=== PATIENT | female | born 1975 | race Caucasian/White ===

== ENCOUNTER → 2018-06-29 15:11 | Outpatient (CLI) | payer OTHER, SELFPAY ==
[2018-06-29 15:52] LABS: Basophils # 0.1 K/mm3 (0-0.2); Basophils % 0.4 % (0.1-2.0); Eosinophils # 0.1 K/mm3 (0.0-0.4); Eosinophils % 0.9 % (0.1-12.0); Hematocrit 40.8 % (37.0-47.0); Hemoglobin 12.8 g/dL (12.2-16.2); Lymphocytes # 2.9 K/mm3 (0.7-4.5); Lymphocytes % 21.9 % (10-50); Mean Corpuscular HGB Conc 31.4 g/dL (31.8-35.4); Mean Corpuscular Hemoglobin 27.3 pg (27.0-31.2); Mean Corpuscular Volume 86.9 fl (81-99); Mean Platelet Volume 6.9 fl (7.4-10.4); Monocytes # 0.7 K/mm3 (0.1-1.0); Monocytes % 5.3 % (1.7-9.3); Neutrophils # 9.3 K/mm3 (1.8-7.8); Neutrophils % 71.4 % (37.0-80.0); Platelet Count 436 K/mm3 (142-424); Red Cell Distribution Width 15.8 % (11.5-17.5)
[2018-06-29 16:32] LABS: C-Reactive Protein 0.7 mg/L (0.0-0.9)
[2018-06-29 16:59] LABS: Erythrocyte Sedimentation Rate 32 mm/hr (0-20)
== END ==
PROVIDERS: Visit Provider Internal Medicine Medical Oncology
DX: D72.829 Elevated white blood cell count, unspecified (principal)
CPT/HCPCS: 36415; 81206; 85025; 85651; 86140; 88189

== ENCOUNTER 2021-01-14 18:40 | Emergency (ER) | payer OTHER, SELFPAY ==
[2021-01-14 18:43] VITALS: BP 172/96; PULSE 94; RESP 18; TEMP 37.2; O2SAT 98; BMI 31.6
[2021-01-14 19:01] VITALS: BP 172/96; PULSE 94; O2SAT 98
[2021-01-14 19:30] VITALS: BP 164/93; PULSE 94; O2SAT 97
--- NOTE | 2021-01-14 19:30 | CT_ITS ---
PROCEDURE INFORMATION: Exam: CTA Chest With Contrast Exam date and time: 01/14/2021 7:30 PM Age: 45 years old Clinical indication: Pain and injury or trauma; Blunt trauma (contusions or hematomas); Patient HX: Fall 01-11-21 with rib pain; Additional info: FX ribs, possible lung involvement TECHNIQUE: Imaging protocol: Computed tomographic angiography of the chest with contrast. 3D rendering (Not supervised by radiologist): MIP and/or 3D reconstructed images were created by the technologist. Radiation optimization: All CT scans at this facility use at least one of these dose optimization techniques: automated exposure control; mA and/or kV adjustment per patient size (includes targeted exams where dose is matched to clinical indication); or iterative reconstruction. Contrast material: ISO 370; Contrast volume: 100 ml; Contrast route: INTRAVENOUS (IV); COMPARISON: No relevant prior studies available. FINDINGS: Pulmonary arteries: No pulmonary emboli. Aorta: Mild atherosclerotic changes of the aorta. Lungs: Patchy widespread ground-glass opacities are favored to represent atypical pneumonia. There are innumerable tiny nodular opacities. Pleural spaces: Unremarkable. No pneumothorax. No pleural effusion. Heart: Unremarkable. No cardiomegaly. No pericardial effusion. Lymph nodes: Unremarkable. No enlarged lymph nodes. Bones/joints: Subtle anterior right 3rd through 6th rib fractures. Soft tissues: Unremarkable. Other findings: Stigmata of old granulomatous disease. IMPRESSION: 1. No pulmonary emboli. 2. Patchy widespread ground-glass opacities are favored to represent atypical pneumonia versus aspiration. While contusions are possible, this is less likely 3 days after the injury. 3. Subtle anterior right 3rd through 6th rib fractures. 4. There are innumerable tiny nodular opacities. While this is favored to be related to infection or aspiration, other etiologies are also possible. For patients at low risk (minimal or absent history of smoking and of other known risk factors), no routine follow-up is indicated. For patients at high risk (history of smoking or of other known risk factors), consider optional CT Chest at 12 months. (Reference: Clarissa) REFERENCES: Clarissa Rajput et al. Guidelines for Management of Incidental Pulmonary Nodules Detected on CT Images: From the Fleischner Society 2017. Radiology. 2017;284(1):228-243.
--- NOTE | 2021-01-14 19:30 | XR_ITS ---
PROCEDURE INFORMATION: Exam: XR Chest Exam date and time: 01/14/2021 7:30 PM Age: 45 years old Clinical indication: Pain and injury or trauma; Blunt trauma (contusions or hematomas); Patient HX: Fall 3 days ago with rib pain and PT said she has been told from pcp that she has a rib FX; Additional info: FX rib TECHNIQUE: Imaging protocol: XR of the chest. Views: 1 view. COMPARISON: CT ANGIO CHEST 01/14/2021 7:55 PM FINDINGS: Lungs: Patchy widespread pulmonary opacities. Pleural spaces: Unremarkable. No pleural effusion. No pneumothorax. Heart/Mediastinum: Unremarkable. No cardiomegaly. Bones/joints: Postsurgical changes of the cervical spine. Known right rib fractures are not well identified on this radiograph. IMPRESSION: Patchy widespread pulmonary opacities. Please exclude atypical pneumonia. Contusions are possible, but less likely.
--- NOTE | 2021-01-14 19:50 | PC.NURSE ---
patient off floor to CT
[2021-01-14 19:59] LABS: Chloride 102 mmol/L (98-107); Potassium 3.2 mmoL/L (3.5-5.1); Sodium 139 mmol/L (136-145)
[2021-01-14 20:02] LABS: Alanine Aminotransferase 21 U/L (12-78); Albumin Level 4.1 g/dl (3.5-5.0); Albumin/Globulin Ratio 1.1 (1.1-1.8); Alkaline Phosphatase 129 U/L (38-126); Anion Gap 12.2 mEq/L (5-15); Aspartate Amino Transferase 25 U/L (14-36); Bilirubin,Total 0.6 mg/dl (0.2-1.3); Blood Urea Nitrogen 5 mg/dl (7-17); Carbon Dioxide 28 mmol/L (22.0-30.0); Creatinine Clearance Estimated 163 mL/min (50-200); Estimated Glomerular Filt Rate 109 ml/min (>60); GFR (African American) 131 ML/MIN (>60); Globulin 3.6 g/dL (1.3-3.2); Glucose 107 mg/dl (74-100); Total Protein,Serum 7.7 g/dl (6.3-8.2)
[2021-01-14 20:13] LABS: Basophils # 0.1 K/mm3 (0-0.2); Basophils % 0.3 % (0.1-2.0); Eosinophils # 0.3 K/mm3 (0.0-0.4); Eosinophils % 1.3 % (0.1-12.0); HCG Qualitative, Serum Negative (Negative); Hematocrit 36.9 % (37.0-47.0); Hemoglobin 11.7 g/dL (12.2-16.2); Lymphocytes # 2.6 K/mm3 (0.7-4.5); Lymphocytes % 10.8 % (10-50); Mean Corpuscular HGB Conc 31.6 g/dL (31.8-35.4); Mean Corpuscular Hemoglobin 27.2 pg (27.0-31.2); Mean Corpuscular Volume 86.2 fl (81-99); Monocytes % 4.1 % (1.7-9.3); Neutrophils # 20.4 K/mm3 (1.8-7.8); Neutrophils % 83.5 % (37.0-80.0); Platelet Count 474 K/mm3 (142-424); Red Blood Count 4.29 M/mm3 (4.20-5.40); Red Cell Distribution Width 15.2 % (11.5-17.5); White Blood Count 24.5 K/mm3 (4.8-10.8)
[2021-01-14 20:16] LABS: MANUAL DIFFERENTIAL MANUAL DIFFERENTIAL (MANUAL DIFF)
[2021-01-14 20:41] LABS: Anisocytosis 1+; Eosinophils % 1 % (0-3); Lymphocytes % 6 % (10-50); Monocytes % 5 % (2-9); Neutrophils % 88 % (42-76); Platelet Estimate Slight Increase; Total Cells Counted 100
[2021-01-14 20:42] LABS: Hypochromasia 1+; Microcytosis 1+
--- NOTE | 2021-01-14 21:27 | HMH.EDGENADL ---
ED Disposition Clinical Impression: Bronchitis, SIRS (systemic inflammatory response syndrome) Ribs, multiple fractures Qualifiers: Encounter type: initial encounter Fracture type: closed Laterality: right Qualified Code(s): S22.41XA - Multiple fractures of ribs, right side, initial encounter for closed fracture Disposition: Home, Self-Care Condition on Discharge: Good Instructions: DI for Rib Fracture Additional Instructions: call pcp for close f/u Prescriptions: levoFLOXacin [Levaquin 500mg tab] 500 mg PO DAILY #7 tab Prescription Printed predniSONE [Prednisone 20mg Tab] 20 mg PO BID #10 tab Prescription Printed Referrals: Miriam Louise DO [Primary Care Provider] - - Critical Care Critical Care Time: No Attestation: On 01/14/21, the high probability of a clinically significant, sudden or life threatening deterioration of the following system(s) required my full and direct attention, intervention and personal management. The time I documented below is in addition to time spent performing reported procedures but includes the following listed in this critical care notation. Medical Decision Making - Medical Records Medical records reviewed: Yes: I reviewed the patient's medical records. - Hus[facility] Inquiry Pt receiving controlled substance: No Vital Signs: 01/14/21 18:43 01/14/21 19:01 01/14/21 19:30 Temperature 99.0 F Temperature Source Oral Pulse Rate 94 H 94 H Pulse Rate [Left Radial] 94 H Respiratory Rate 18 Blood Pressure 172/96 H 164/93 H Blood Pressure [Right Arm] 172/96 H Blood Pressure Mean [Right Arm] 121 Blood Pressure Source [Right Arm] Automatic Cuff Blood Pressure Position [Right Arm] Sitting 02 Sat by Pulse Oximetry 98 98 97 Oxygen Delivery Method Room Air Room Air Room Air 01/14/21 21:28 Temperature Temperature Source Pulse Rate Pulse Rate [Left Radial] Respiratory Rate Blood Pressure Blood Pressure [Right Arm] Blood Pressure Mean [Right Arm] Blood Pressure Source [Right Arm] Blood Pressure Position [Right Arm] 02 Sat by Pulse Oximetry 100 Oxygen Delivery Method Room Air - Lab Data Lab results reviewed: Yes: I reviewed the patient's lab results. Lab Results 01/14/21 19:39: WBC 24.5 H*, RBC 4.29, Hgb 11.7 L, Hct 36.9 L, MCV 86.2, MCH 27.2, MCHC 31.6 L, RDW 15.2, Plt Count 474 H, MPV 8.0, Neut % (Auto) 83.5 H, Lymph % (Auto) 10.8, Gilliam % (Auto) 4.1, Eos % (Auto) 1.3, Baso % (Auto) 0.3, Neut # (Auto) 20.4 H, Lymph # (Auto) 2.6, Gilliam # (Auto) 1.0, Eos # (Auto) 0.3, Baso # (Auto) 0.1, Total Counted 100, Neutrophils % (Manual) 88 H, Lymphocytes % (Manual) 6 L, Monocytes % (Manual) 5, Eosinophils % (Manual) 1, Platelet Estimate Slight increase, Hypochromasia 1+, Anisocytosis 1+, Microcytosis 1+ 01/14/21 19:39: Sodium 139, Potassium 3.2 L, Chloride 102, Carbon Dioxide 28, Anion Gap 12.2, BUN 5 L, Creatinine 0.60, Estimated Creat Clear 163, Estimated GFR 109, Est GFR ( Amer) 131, Glucose 107 H, Calcium 9.0, Total Bilirubin 0.6, AST 25, ALT 21, Alkaline Phosphatase 129 H, Total Protein 7.7, Albumin 4.1, Globulin 3.6 H, Albumin/Globulin Ratio 1.1 01/14/21 19:39: Serum HCG, Qual Negative 01/14/21 21:07: Lactate 0.7 01/14/21 21:57: SARS-CoV-2 (PCR) Not detected, Influenza A Untype (PCR) Not detected, Influenza Type B (PCR) Not detected Result diagrams: 01/14/21 19:39 01/14/21 19:39 Orders (Tests/Meds): ED MEDICATIONS Generic Name Dose Route Start Last Admin Trade Name Freq PRN Reason Stop Dose Admin Sodium Chloride 1,000 mls @ 999 mls/hr 01/14/21 21:00 01/14/21 21:05 Sod Chlor 0.9% 1000ml Bag IV 01/14/21 22:00 999 mls/hr .Q1H1M DES Administration Discontinued Medications Generic Name Dose Route Start Last Admin Trade Name Freq PRN Reason Stop Dose Admin Iopamidol 100 ml 01/14/21 20:02 01/14/21 20:03 Iopamidol-370 (76%);100ml Bottle IV 01/14/21 20:03 100 ml ONCE ONE Administration Ketorolac Tromet
[2021-01-14 21:28] VITALS: O2SAT 100
[2021-01-14 21:37] LABS: Lactic Acid 0.7 mmol/L (0.7-2.1)
[2021-01-14 22:03] LABS: Coronavirus 19, PCR Not Detected (NotDetected); Influenza A, PCR Not Detected (NotDetected); Influenza B, PCR Not Detected (NotDetected)
[2021-01-14 22:43] VITALS: BP 158/89; PULSE 92; RESP 18; TEMP 36.8; O2SAT 100
== END 2021-01-14 22:46 | disposition home or self-care (01) ==
PROVIDERS: Emergency Medicine; Emergency Provider Emergency Medicine; PCP Family Medicine
DX: S22.49XA Multiple fractures of ribs, unspecified side, initial encounter for closed fracture (principal); J20.9 Acute bronchitis, unspecified; R65.10 Systemic inflammatory response syndrome (SIRS) of non-infectious origin without acute organ dysfunction; F17.210 Nicotine dependence, cigarettes, uncomplicated; Z20.822 Contact with and (suspected) exposure to COVID-19
CPT/HCPCS: 71045; 71275; 80053; 83605; 84703; 85007; 85025; 87040; 96365; 96375; 99284; Q9967; U0003

== ENCOUNTER → 2021-12-14 10:31 | Outpatient (CLI) | payer OTHER, SELFPAY ==
--- NOTE | 2021-12-14 10:34 | US_ITS ---
FINAL REPORT CLINICAL HISTORY: heavy bleeding FINDINGS: Transvaginal sonographic images of the pelvis were obtained. The uterus measures 10.5 x 5.4 x 6.9 cm. The endometrium measures 15 mm, which is borderline thickened. There is a small, probable endometrial cyst. There is a 2.4 cm uterine fibroid. The right ovary measures 4.2 cm in length and left ovary measures 2.9 cm in length. Normal blood flow seen to the ovaries. Small follicles are present. There is a 2 cm right ovarian cyst. A small amount of free fluid is seen which may be physiologic or reactive. IMPRESSION: Borderline thickened endometrium. Follow-up ultrasound in 6-8 weeks may be helpful for further evaluation. 2.4 cm uterine fibroid. 2 cm right ovarian cyst. Reviewed, Interpreted and Dictated by Efrain Freeman III, MD Transcribed by Estephanie Yates Authenticated and [facility]
== END ==
PROVIDERS: PCP Family Medicine; Visit Provider Obstetrics & Gynecology
DX: N92.0 Excessive and frequent menstruation with regular cycle (principal)
CPT/HCPCS: 76830

== ENCOUNTER → 2021-12-14 10:56 | Outpatient (CLI) | payer OTHER, SELFPAY ==
[2021-12-14 11:35] LABS: Basophils # 0.2 K/mm3 (0-0.2); Basophils % 1.1 % (0.1-2.0); Eosinophils # 0.2 K/mm3 (0.0-0.4); Eosinophils % 1.8 % (0.1-12.0); Hemoglobin 10.7 g/dL (12.2-16.2); Lymphocytes # 3.1 K/mm3 (0.7-4.5); Lymphocytes % 22.3 % (10-50); Mean Corpuscular HGB Conc 30.6 g/dL (31.8-35.4); Mean Corpuscular Hemoglobin 23.6 pg (27.0-31.2); Mean Platelet Volume 7.6 fl (7.4-10.4); Monocytes % 7.5 % (1.7-9.3); Neutrophils # 9.3 K/mm3 (1.8-7.8); Neutrophils % 67.4 % (37.0-80.0); Platelet Count 561 K/mm3 (142-424); Red Blood Count 4.54 M/mm3 (4.20-5.40); Red Cell Distribution Width 18.2 % (11.5-17.5); White Blood Count 13.8 K/mm3 (4.8-10.8)
[2021-12-14 13:15] LABS: Thyroid Stimulating Hormone 1.06 uIU/mL (0.465-4.68)
[2021-12-15 08:18] LABS: FSH 9.8 mIU/mL (.)
== END ==
PROVIDERS: Visit Provider Obstetrics & Gynecology
DX: N92.0 Excessive and frequent menstruation with regular cycle (principal); N92.6 Irregular menstruation, unspecified
CPT/HCPCS: 36415; 83001; 84443; 85025

== ENCOUNTER → 2022-01-06 08:57 | Outpatient (CLI) | payer OTHER, SELFPAY ==
[2022-01-06 10:10] LABS: Basophils # 0.1 K/mm3 (0-0.2); Basophils % 0.8 % (0.1-2.0); Eosinophils # 0.2 K/mm3 (0.0-0.4); Eosinophils % 1.1 % (0.1-12.0); Hematocrit 33.8 % (37.0-47.0); Hemoglobin 10.2 g/dL (12.2-16.2); Lymphocytes # 2.3 K/mm3 (0.7-4.5); Lymphocytes % 15.1 % (10-50); Mean Corpuscular HGB Conc 30.3 g/dL (31.8-35.4); Mean Corpuscular Volume 79.2 fl (81-99); Mean Platelet Volume 7.5 fl (7.4-10.4); Monocytes # 0.9 K/mm3 (0.1-1.0); Monocytes % 6.1 % (1.7-9.3); Neutrophils # 11.6 K/mm3 (1.8-7.8); Neutrophils % 76.9 % (37.0-80.0); Platelet Count 555 K/mm3 (142-424); Red Blood Count 4.26 M/mm3 (4.20-5.40); Red Cell Distribution Width 18.2 % (11.5-17.5)
[2022-01-06 10:14] LABS: Benzodiazepines Screen,Urine Negative ng/ml (<200)
[2022-01-06 10:15] LABS: Amphetamine/Metha Screen,Urine Negative ng/ml (<1000)
[2022-01-06 10:16] LABS: Barbiturates Screen,Urine Negative ng/ml (<200); Cannabinoid Screen,Urine Negative ng/ml (<50); Chloride 104 mmol/L (98-107); Potassium 3.6 mmoL/L (3.5-5.1); Sodium 140 mmol/L (136-145)
[2022-01-06 10:17] LABS: Cocaine Screen,Urine Negative ng/ml (<300)
[2022-01-06 10:18] LABS: Methadone Screen,Urine Negative ng/ml (<300); Opiate Screen,Urine Negative ng/ml (<300)
[2022-01-06 10:19] LABS: Alanine Aminotransferase 17 U/L (12-78); Albumin Level 3.9 g/dl (3.5-5.0); Albumin/Globulin Ratio 1.3 (1.1-1.8); Alkaline Phosphatase 101 U/L (38-126); Anion Gap 10.6 mEq/L (5-15); Aspartate Amino Transferase 29 U/L (14-36); Bilirubin,Total 0.3 mg/dl (0.2-1.3); Blood Urea Nitrogen 7 mg/dl (7-17); Calcium 9.8 mg/dl (8.4-10.2); Carbon Dioxide 29 mmol/L (22.0-30.0); Estimated Glomerular Filt Rate 78 ml/min (>60); GFR (African American) 94 ML/MIN (>60); Globulin 2.9 g/dL (1.3-3.2); Glucose 90 mg/dl (74-100); MANUAL DIFFERENTIAL MANUAL DIFFERENTIAL (MANUAL DIFF); Phencyclidine Screen,Urine Negative ng/ml (<25); Total Protein,Serum 6.8 g/dl (6.3-8.2)
[2022-01-06 10:40] LABS: HCG,Quantitative < 2 mIU/ml (0-5.42)
[2022-01-06 19:33] LABS: Eosinophils % 2 % (0-3); Hypochromasia 2+; Lymphocytes % 11 % (10-50); Microcytosis 1+; Monocytes % 2 % (2-9); Neutrophils % 85 % (42-76); Platelet Estimate Slight Increase; Total Cells Counted 100
== END ==
PROVIDERS: Visit Provider Obstetrics & Gynecology
DX: Z01.812 Encounter for preprocedural laboratory examination (principal); Z20.822 Contact with and (suspected) exposure to COVID-19; N92.0 Excessive and frequent menstruation with regular cycle
CPT/HCPCS: 36415; 80053; 80305; 84702; 85007; 85025; C9803; U0003; U0005

== ENCOUNTER 2022-01-08 05:45 | Day surgery (SDC) | payer OTHER, SELFPAY ==
[2022-01-06 09:14] VITALS: BMI 27.4
--- NOTE | 2022-01-07 08:10 | SUR.PREOP ---
Notified Dr Dexter's office of pt's WBC
[2022-01-08] VITALS (10 sets, daily range): BP systolic 110–151; BP diastolic 66–95; PULSE 67–105; RESP 14–18; TEMP 36.3–36.8; O2SAT 95–100
[2022-01-08 06:28] LABS: Microscopic, Urine URINE MICROSCOPIC (MICROSCOPIC)
[2022-01-08 06:30] LABS: Appearance,Urine TURBID (Clear); Bilirubin,Urine Negative (Negative); Blood, Urine TRACE-I (Negative); Color,Urine YELLOW (Yellow); Glucose,Urine (UA) Negative (Negative); Ketones,Urine Negative (Negative); Leukocyte Esterase,Urine 1+ (Negative); Nitrate,Urine POSITIVE (Negative); Protein,Urine Negative (Negative)
[2022-01-08 07:06] LABS: Bacteria,Urine 3+ /lpf
[2022-01-08 07:07] LABS: Amorphous Sediment,Urine 1+ /lpf; RBC,Urine Occasional #/hpf (0-3)
--- NOTE | 2022-01-08 07:16 | EXP.ANES.CKL ---
[facility] Medical History COPD (chronic obstructive pulmonary disease) History of COVID-19 Hypertension Surgical History History of neck surgery Previous back surgery Family History Other No significant family history Social History Smoking Status: Current every day smoker tobacco type: cigarettes packs per day: 1 alcohol intake: never substance use type: denies use current occupational status: employed Travel in the last 8 weeks: None [facility] Anesthesia Checklist Patient Identification Patient Identification: Arm Band and Verbal (Name & ) Structural Data Admitted From: Home Planned Operative Procedure/s: Hyst/D & C/myosure Consent for Planned Operative Procedure(s) Verified: Yes NPO Status Verified Time NPO: 00:00 Chart Verification Results Verified: CBC, BMP and HCG Additional verifications Anesthesia Reactions: No Hx Blood Transfusions: No Blood Transfusion Reaction: No Airway Assessment C-Spine Mobility Assessed: Yes TMJ Mobility Assessed: Yes Dentition: Partials Neurological Assessment Level of Consciousness: Awake Hx Seizures: No Numbness or tingling in extremities: No Anesthesia Plan Anesthesia Risk discussed: Yes Anesthesia Plan: Verified ASA Class: II Anesthesia Type: MAC
--- NOTE | 2022-01-08 08:43 | EXP.ANES.I ---
[facility] Anesthesia Record Part I Anesthesia Record I Intake, IV Amount: 350 Estimated blood loss (mL): 5 Urine output (mL): 0 Blood Pressure: 124/95 SaO2: 100 Pulse Rate: 105 Respiratory Rate: 15 Temperature: 97.3 F Patient is:: Drowsy and Oral/Nasal airway Stable to PACU at:: 08:41
--- NOTE | 2022-01-08 09:13 | SUR.PHASEI ---
[id number]-detailed report to eddy macias rn post op.
--- NOTE | 2022-01-08 09:36 | P.OP_ITS ---
Date of procedure: 01/08/22 Pre-op Diagnosis:: 1. Heavy menstrual bleeding 2. Dysfunctional uterine bleeding 3. Thickened endometrium 4. Endometrial cyst Post-op Diagnosis:: Same as Preop Dx Procedure performed:: Dilation and Curettage Hysteroscopy with Myosure excision of endometrial lesion Surgeon:: Susie Dexter MD CD MANUFACTURING SUPERVISOR:: Mackenzie Burden Anesthesia: GETA Estimated blood loss (mL): 5 Operative findings:: Enlarged uterine cavity Proliferative endometrial tissue Polypoid lesion anterior uterine wall Operative note:: The patient was taken to the OR and general anesthesia administered without difficulty. She was prepped/draped in lithotomy position. The cervix was dilated and hysteroscopic evaluation performed. The uterus was enlarged and moderate difficulty was encountered getting position of uterus to straighten sufficiently to advance the hysteroscope, but this was able to be accomplished through direct visualization and hydrodilation. Proliferative endometrial tissue was visualized within the endometrial cavity, as well as a polypoid lesion on the anterior uterine wall. This lesion was consistend with an endometrial polyp or submucosal fibroid, but did not appear cystic, as previously noted on pelvic ultrasound. The Myosure was used to excise this lesion and to sample endometrial tissue throughout the cavity. Once this was completed, all instruments were removed from her uterus and vagina. Preoperative plan was to perform a Novasure endometrial ablation after Myosure, but because of the difficulty obtaining the necessary position of her uterus, the rigid Novasure device could not be successfully introduced into appropriate position within the uterus, so an ablation was not performed. She was taken out of lithotomy position, awakened from anesthesia and taken to the PACU in stable condition. All sponge, needle & instrument counts correct. EBL 5cc. Condition: stable Disposition: PACU Specimens:: Endometrial curettings Endometrial mass Complications:: None
--- NOTE | 2022-01-08 10:27 | P.PNANES_ITS ---
[facility] Anesthesia Record Part II Anesthesia Record Part II Discharge Time: 09:11 Destination: Surgical Day Care (OP Surgery) PACU nurse assessment reviewed?: Yes Patient Condition:: Good Anesthesia Complications:: None Swallowing reflex intact?: Yes Cyanosis?: No Blood Pressure: 128/81 Pulse Rate: 72 Temperature: 97.4 F Mental Status: Alert & Oriented Pain level:: 0 Nausea and/or vomitting:: None Intake, IV Amount: 0
== END 2022-01-08 09:45 | disposition home or self-care (01) ==
PROVIDERS: PCP Family Medicine; Visit Provider Obstetrics & Gynecology
PROC: (CPT 58558; principal; 2022-01-08 07:30)
DX: N92.0 Excessive and frequent menstruation with regular cycle (principal); N93.8 Other specified abnormal uterine and vaginal bleeding; N85.8 Other specified noninflammatory disorders of uterus
CPT/HCPCS: 58558; 81001; 87086; 87088; 87186; 96374; J0696; J2405